=== PATIENT | male | born 1965 | race Caucasian/White ===

== ENCOUNTER 2022-01-07 09:32 | Day surgery (SDC) | payer BC, SELFPAY ==
[2022-01-07] VITALS (8 sets, daily range): BP systolic 113–131; BP diastolic 58–88; PULSE 45–76; RESP 16–18; TEMP 36.2–36.9; O2SAT 93–97; BMI 34.4
[2022-01-07] MEDS: Lactated Ringers 1,000 ML 15 ML IV ×2 (10:25→13:06)
[2022-01-07] MEDS: Cefazolin 2 GM in 0.9% Normal Saline 100 ML IV (11:37)
--- NOTE | 2022-01-07 11:40 | BLB_PTH ---
PATIENT: VAN LOPEZ [place] [facility] [place][id number] AGE/SX: 56/M ROOM: RE01/07/[address]: Dr. Trenton Hair MD : 1965 BED: DIS: 01/07/2022 SPEC #: [id number] RECD: 01/07/22 13:47 STATUS: ILYA REMingo #: [id number] MEGAN: 01/07/22 11:[address]: Trenton Hair DEPT: SURGICAL PATHOLOGY RECD BY: Era Fink ENTERED: 01/10/22 09:05 SP TYPE: TURB OTHR DR: Dr. Dominik Carlos, DO Tissues: A - Urinary bladder, NOS B - Urinary bladder, NOS Procedures: Surgery Specimen Level V HEADER OPERATION: TURBT, Olympus with Nader C, bladder instillation PRE-OP DIAGNOSIS: Bladder cancer TISSUE SUBMITTED: A ? Bladder tissue superficial, B ? Bladder tissue deep MICROSCOPIC DIAGNOSIS A. Urinary bladder tissue, transurethral resection: Papillary urothelial carcinoma. See cancer synoptic report below. B. Urinary bladder tissue, deep, tissue, transurethral resection: Papillary urothelial carcinoma. See cancer synoptic report below. AM:fransico 01/11/2022 COMMENT A. BLADDER CANCER (TUR) SUMMARY Procedure: Transurethral resection of bladder tumor (TURBT) Tumor site: Not specified Histologic type: Papillary urothelial carcinoma Histologic grade: 3/3 (high grade) Tumor configuration: Papillary Muscularis propria presence: Focally present and free of carcinoma. Lymphvascular invasion: Not identified Tumor extension: Confined to urothelium. Additional pathologic findings: Focal chronic inflammation and tumor necrosis. B. BLADDER CANCER (TUR) SUMMARY Procedure: Transurethral resection of bladder tumor (TURBT) Tumor site: Not specified Histologic type: Papillary urothelial carcinoma Histologic grade: 2-3/3 (high grade) Tumor configuration: Papillary Muscularis propria presence: Present and free of carcinoma. Lymphvascular invasion: Not identified Tumor extension: Tumor confined to urothelium. Additional pathologic findings: Chronic inflammation. The above summary is in compliance with [employer] [place] [employer] (CAP) Cancer Protocols Checklist and [place] Joint Committee on Cancer (AJCC), Staging Manual, 8th Ed. Case has been reviewed in consultation with Dr. Rosario who concurs with the above diagnosis. IDC:SJ MICROSCOPIC DESCRIPTION Slides are reviewed. GROSS DESCRIPTION A - Received in fixative is one container labeled with the patient's name and designated bladder tissue superficial. The specimen consists of multiple irregular fragments of brown soft tissue that in aggregate measure 3.5 x 3.5 x 2 cm. The entire specimen is submitted in ten cassettes. B - Received in fixative is one container labeled with the patient's name and designated bladder tissue deep. The specimen consists of multiple irregular fragments of brown soft tissue that in aggregate measure 3 x 2 x 0.3 cm. The entire specimen is submitted in one cassette. / SJ:fransico 01/10/2022 TC:0 CPT: 93634 x2
[2022-01-07] MEDS: Ketorolac 15 MG/ML Vial IV (11:49)
--- NOTE | 2022-01-07 11:50 | PCM.HP.STD ---
HPI - General HPI Narrative VAN LOPEZ, is a 56 M who presents resection of bladder cancer and instillation Mitomycin-C PFS Medical History (Updated 01/07/22 @ 11:[address] Trenton Hair MD) Alcohol use Arthritis Bladder disease Cardiology follow-up encounter Chews products containing tobacco Former smoker Gastric reflux Gout High cholesterol History of edema History of stress test Hypertension Shortness of breath on exertion Wears glasses Home Medications amlodipine 10 mg tablet 5 mg PO QHS BP 12/29/21 [History Last Taken Unknown] losartan 100 mg tablet 100 mg PO QHS BP 12/29/21 [History Last Taken Unknown] multivitamin 1 tab PO QWEEK supplement 12/29/21 [History Last Taken Unknown] omeprazole 40 mg capsule,delayed release 40 mg PO QHS GERD 12/29/21 [History Last Taken Unknown] ciprofloxacin HCl 500 mg tablet (Cipro) 500 mg PO BID #10 tabs 01/07/22 [Rx Last Taken Unknown] oxycodone-acetaminophen 5 mg-325 mg tablet 1 tab PO Q6H PRN pain 7 days #14 tabs 01/07/22 [Rx Last Taken Unknown] phenazopyridine 100 mg tablet (Pyridium) 100 mg PO TID PRN pain 3 days #10 tabs 01/07/22 [Rx Last Taken Unknown] Allergy/AdvReac Type Severity Reaction Status Date / Time No Known Allergies Allergy Verified 12/29/21 15:06 Surgical History (Updated 12/29/21 @ 16:02 by Flaca Helms) History of cardiac catheterization History of cholecystectomy History of colonoscopy History of tonsillectomy History of umbilical hernia repair Social History Smoking Status: Former smoker Vital Signs Vital Signs Vital Signs: 01/07/22 10:07 01/07/22 10:07 Temperature 98.5 F Temperature Source Temporal Pulse Rate 58 L Respiratory Rate 18 Respiratory Pattern Normal Blood Pressure 124/81 H Blood Pressure Mean 95 Blood Pressure Source Monitor Blood Pressure Position Semi-Fowlers Blood Pressure Location Left Arm Pulse Ox 97 Oxygen Delivery Method Room Air Weight Weight: 112 kg Body Mass Index (BMI) 34.4
--- NOTE | 2022-01-07 11:51 | DCINST_ITS ---
Discharge Instructions Diet Discharge Diet: Light diet - advance as tolerated and Soft diet Activity Discharge Activity: May Shower Lifting Restrictions: No heavy lifting for a few weeks Dressing / Incision Call your doctor if your incision/area has: Continuous Slow Oozing and Sudden Increased Bleeding Follow Up Care Please Follow Up With: Trenton Hair MD When: 2 weeks call for appointment Test Results: Test results from this visit will be discussed in further detail at your follow- up appointment, if applicable. Discharge Plan Admission Primary Reason for Your Visit: Resection of bladder tumor Attending Provider: Trenton Hair Primary Care Provider: Dominik Carlos Instructions Patient Instructions: Transurethral Bladder Tumor Dc Discharge Orders/Prescriptions Prescriptions: New ciprofloxacin HCl [Cipro] 500 mg tablet 500 mg PO BID Qty: 10 0RF phenazopyridine [Pyridium] 100 mg tablet 100 mg PO TID PRN (Reason: pain) 3 Days Qty: 10 0RF oxycodone-acetaminophen 5-325 mg tablet 1 tab PO Q6H PRN (Reason: pain) 7 Days Qty: 14 0RF Continued multivitamin Tablet 1 tab PO QWEEK omeprazole 40 mg capsule,delayed release(DR/EC) 40 mg PO QHS amlodipine 10 mg tablet 5 mg PO QHS Label Comments: TAKE 1 TABLET BY MOUTH ONCE DAILY FOR 90 DAYS losartan 100 mg tablet 100 mg PO QHS Label Comments: TAKE 1 TABLET BY MOUTH ONCE DAILY FOR 90 DAYS Referrals / Follow Up: Dominik Carlos DO [Primary Care Provider] - Disposition Disposition (needs filled in before D/C Order can be placed): Home, Self Care
--- NOTE | 2022-01-07 12:44 | PCM.OPRPT ---
Report of Operation Date of Procedure: 01/07/22 Pre-Operative Diagnosis: Large bladder tumor greater than 5 cm in size Post-Operative Diagnosis: Same Surgery/Procedure Performed:: Transurethral section of a large bladder tumor and instillation of Mitomycin-C Description of Surgical Findings:: Patient was taken back to the operating room at the [facility] duction of general anesthesia he was placed in dorsolithotomy position. The penis testicles were prepped and draped usual sterile fashion within the bladder with a 21 Moldovan rigid cystourethroscope with a 20 degree lens the entire length the urethra was normal the prostate was normal minimal obstruction inside the bladder there was a large tumor emanating from the patient's left lateral wall this tumor is greater than 5 cm in size and cystoscopic measurement, I then used a 30 and 70 degree lens and inspected rest of the bladder the main tumor was coming off the lateral wall and into the end of the other satellite tumors in the bladder. I then switched over to the resectoscope went in with a 24 Moldovan noncontinuous flow bipolar Olympus resectoscope and then started resecting at the edges of the tumor working my way from the 12:[address] down to the 6:00 of the tumor and then working my way down to the base of the tumor as I resected all the chips were removed I then finally got down to the base of the tumor and cauterized and resected the first initial superficial tumor was sent off of the for specimen and then I did a deeper resection and sent off a second specimen is a deeper resection to try to get muscle evaluation. The tumor was definitely large appeared to be least invasive into the lamina propria I am not sure if it was really muscle invasive it did not appear to be muscle invasive but we will see what the deeper resection show I obtained hemostasis electrocautery and inspected the rest of the bladder there were no other tumors got all the chips out all the pieces out and then put a catheter in the bladder I did have to resect the left ureter ureteral orifice but it was open and patent so I did not put a stent after the resection was done but a cath in her bladder and we put 40 cc of Mitomycin-C in the bladder as opposed to resection dose chemotherapy. No Surgeon: Trenton Hair Type of Anesthesia: General Drains: 16 fr Admit VTE Documentation VTE Present on Admission: No VTE Mechan Device Prophylaxis: SCD's VTE Pharm Prophylaxis ordered?: No
--- NOTE | 2022-01-07 13:39 | SUR.PHASEI ---
1330 PEREZ CATH D/C'D AFTER REMOVAL OF 50CC FLUID REMOVED, PT TOLERATED WELL.
== END 2022-01-07 16:31 | disposition home or self-care (01) ==
LOC: SDC 09:34 → AC 09:35
PROVIDERS: PCP Student in an Organized Health Care Education/Training Program; Referring Provider Urology; Visit Provider Urology
PROC: 0T5B8ZZ Destruction of Bladder, Via Natural or Artificial Opening Endoscopic (ICD-10-PCS; CPT 51720; principal; 2022-01-07 11:30)
DX: C67.2 Malignant neoplasm of lateral wall of bladder (principal); E78.00 Pure hypercholesterolemia, unspecified; I10 Essential (primary) hypertension; K21.9 Gastro-esophageal reflux disease without esophagitis; M19.90 Unspecified osteoarthritis, unspecified site; F17.220 Nicotine dependence, chewing tobacco, uncomplicated; R31.0 Gross hematuria; Z90.49 Acquired absence of other specified parts of digestive tract; Z72.89 Other problems related to lifestyle; Z79.899 Other long term (current) drug therapy
CPT/HCPCS: 52240; 00912; 88307; J7120; J2405; J3490; J9280

== ENCOUNTER → 2022-01-24 | Outpatient (CLI) | payer BC, SELFPAY ==
[2022-01-24 15:46] LABS: Hematocrit 45.7 % (40-54); Hemoglobin 15.4 g/dL (13.0-16.5); Mean Corp Hgb Conc 33.7 g/dL (32-36); Mean Corpuscular Hgb 29.9 pg (27.0-32.0); Mean Corpuscular Volume 88.7 fL (80-94); Mean Platelet Vol. 9.4 fl (6.2-12.0); Platelet Count 362 K/mm3 (150-450); RBC Distribution Width CV 12.6 % (11.6-14.6); Red Blood Count 5.15 M/mm3 (4.6-6.2); White Blood Count 9.9 K/mm3 (4.4-11.0)
[2022-01-24 16:51] LABS: Anion Gap 8 (5-15); BUN 16 mg/dL (7-18); Calcium,Total 9.4 mg/dL (8.5-10.1); Chloride 105 mmol/L (98-107); EST Glomerular Filtration Rate 106 mL/min (>60); Est Glom Filt Rate - Afr Amer 129 mL/min (>60); Glucose 103 mg/dL (74-106); Sodium Level 141 mmol/L (136-145)
== END | disposition home or self-care (01) ==
PROVIDERS: PCP Student in an Organized Health Care Education/Training Program; Referring Provider Urology; Visit Provider Urology
DX: Z01.812 Encounter for preprocedural laboratory examination (principal); R31.0 Gross hematuria
CPT/HCPCS: 36415; 80048; 85027; 87086; 87088

== ENCOUNTER → 2022-02-21 | Outpatient (CLI) | payer BC, SELFPAY ==
--- NOTE | 2022-02-21 | BLA_PTH ---
PATIENT: VAN LOPEZ LOC: [facility] U#:[id number] AGE/SX: 56/M ROOM: RE02/21/[address]: Dr. Trenton Hair MD : 1965 BED: DIS: 02/21/2022 SPEC #: [id number] RECD: 02/21/22 15:01 STATUS: ILYA SLOAN #: [id number] MEGAN: 02/21/22 00:[address]: Trenton Hair DEPT: SURGICAL PATHOLOGY RECD BY: Fly Fletcher ENTERED: 02/22/22 08:46 SP TYPE: BLADDER BX OTHR DR: Dr. Dominik Carlos, [facility] Tissues: Urinary bladder, NOS Procedures: Surgery Specimen Level V HEADER OPERATION: Cystoscopy, bladder biopsy with fulguration PRE-OP DIAGNOSIS: Malignant neoplasm of overlapping sites of bladder TISSUE SUBMITTED: Bladder tissue MICROSCOPIC DIAGNOSIS Bladder tissue, transurethral resection: Fragments of bladder wall (mucosa including underlying detrusor muscle) with acute and chronic inflammation. Negative for malignancy. See comment. BENITO:fransico 02/23/2022 COMMENT Overlying epithelium and a few detached fragments of urothelium are also noted showing hyperplastic changes and mild atypia. Please make reference to previous specimen ([id number]) urinary bladder tissue, TUR and urinary bladder tissue, deep tissue, TUR with diagnosis of ?papillary urothelial carcinoma.? Case has been reviewed in consultation with Dr. Argueta who concurs with the above diagnosis. IDC:AM MICROSCOPIC DESCRIPTION Slides are reviewed. GROSS DESCRIPTION Received in fixative is one container labeled with the patient's name and designated bladder tissue. The specimen consists of multiple fragments of kong hemorrhagic soft tissue that in aggregate measure 5 x 3 x 0.3 cm. The specimen is totally submitted in one cassette. The entire specimen is submitted in two cassettes. / BENITO:fransico 02/22/2022 TC:2 CPT: 19809
== END | disposition home or self-care (01) ==
LOC: LAB 15:18
PROVIDERS: PCP Student in an Organized Health Care Education/Training Program; Visit Provider Urology
DX: C67.8 Malignant neoplasm of overlapping sites of bladder (principal)
CPT/HCPCS: 88305; 88307

== ENCOUNTER → 2022-10-03 | Outpatient (CLI) | payer BC, SELFPAY ==
[2022-10-03 13:45] LABS: PSA,Total - Annual Screen 1.87 ng/mL (0.00-4.00)
== END | disposition home or self-care (01) ==
PROVIDERS: PCP Student in an Organized Health Care Education/Training Program; Referring Provider Urology; Visit Provider Urology
DX: Z12.5 Encounter for screening for malignant neoplasm of prostate (principal)
CPT/HCPCS: 36415; 84153; G0103

== ENCOUNTER 2022-10-26 07:38 | Day surgery (SDC) | payer BC, SELFPAY ==
--- NOTE | 2022-10-21 12:22 | EKG12_ITS ---
Test Reason : PREOP Blood Pressure : / mmHG Vent. Rate : 071 BPM Atrial Rate : 071 BPM P-R Int : 138 ms QRS Dur : 086 ms QT Int : 386 ms P-R-T Axes : 025 033 054 degrees QTc Int : 419 ms Normal sinus rhythm Low voltage QRS Nonspecific T wave abnormality Abnormal ECG Confirmed by MELINDA MCLAUGHLIN, INGRID ([id number]), technical editor KARI RIVERA ([id number]) on 10/24/2022 1:10:57 PM Referred By: Trenton Hair Confirmed By:ADRIENNE LAWRENCE MD
[2022-10-21 13:00] LABS: Hemoglobin 14.5 g/dL (13.0-16.5); Mean Corp Hgb Conc 33.7 g/dL (32-36); Mean Corpuscular Hgb 29.8 pg (27.0-32.0); Mean Corpuscular Volume 88.5 fL (80-94); Mean Platelet Vol. 9.8 fl (6.2-12.0); Platelet Count 270 K/mm3 (150-450); RBC Distribution Width CV 12.7 % (11.6-14.6); RBC Distribution Width SD 40.9 fl (35.1-43.9); Red Blood Count 4.86 M/mm3 (4.6-6.2); White Blood Count 6.8 K/mm3 (4.4-11.0)
[2022-10-21 13:07] LABS: Partial Thromboplast Time 28.1 Seconds (24.1-36.2); Prothrombin Time (Protime)PT. 13.6 SECONDS (11.7-14.9)
[2022-10-21 13:29] LABS: AST(SGOT) 21 U/L (15-37); Alanine Aminotransfer ALT/SGPT 31 U/L (16-61); Albumin, Serum 3.4 g/dL (3.2-5.0); Alkaline Phosphatase 60 U/L (45-117); Anion Gap 4 (5-15); BUN 13 mg/dL (7-18); BUN/Creat Ratio 15.8 RATIO (10-20); Bilirubin, Direct 0.18 mg/dL (0.00-0.30); Calcium,Total 8.7 mg/dL (8.5-10.1); Chloride 107 mmol/L (98-107); Creatinine, Serum 0.82 mg/dL (0.70-1.30); EST Glomerular Filtration Rate 102 mL/min (>60); Est Glom Filt Rate - Afr Amer 124 mL/min (>60); Globulin 4.1 g/dL (2.2-4.2); Glucose 110 mg/dL (74-106); Protein, Total 7.5 g/dL (6.4-8.2); Sodium Level 139 mmol/L (136-145)
--- NOTE | 2022-10-26 | BLB_PTH ---
PATIENT: VAN LOPEZ LOC: [facility] [place] U#:[id number] AGE/SX: 56/M ROOM: RE10/26/[address]: Dr. Trenton Hair MD : 1965 BED: DIS: 10/26/2022 SPEC #: [id number] RECD: 10/26/22 15:31 STATUS: ILYA SLOAN #: [id number] MEGAN: 10/26/22 00:[address]: Trenton Hair DEPT: SURGICAL PATHOLOGY RECD BY: Fly Fletcher ENTERED: 10/27/22 13:07 SP TYPE: TURB OTHR DR: MD Dr. Dominik Damico, Tissues: Urinary bladder, NOS Procedures: Surgery Specimen Level V HEADER OPERATION: Transurethral resection bladder tumor PRE-OP DIAGNOSIS: Bladder tumor TISSUE SUBMITTED: Bladder tumor MICROSCOPIC DIAGNOSIS Bladder tumor, transurethral resection bladder tumor: Noninvasive papillary urothelial carcinoma. See cancer summary in the comment section. BENITO: 10/28/2022 COMMENT BLADDER CANCER SUMMARY: Procedure - transurethral resection bladder tumor. Tumor site - not specified. Histologic type - papillary urothelial carcinoma, noninvasive Associated epithelial lesions - none identified. Histologic grade - 2/3 (low grade) Tumor configuration - papillary Muscularis presence - muscularis propria (detrusor muscle) not present Lymph-Vascular invasion - not identified. Tumor extension -noninvasive papillary carcinoma. Additional findings - none The above summary is in compliance with [employer] [place] [employer] (CAP) Cancer Protocols Checklist and [place] Joint Committee on Cancer (AJCC), Staging Manual, 8th Ed. Please also make reference to previous specimen [id number], Urinary bladder tumor, transurethral resection with diagnosis of papillary urothelial carcinoma. Case has been reviewed in consultation with Dr. Argueta who concurs with the above diagnosis. IDC:AM MICROSCOPIC DESCRIPTION Slides are reviewed. GROSS DESCRIPTION Received is one container labeled with the patient name and designated bladder tumor]. The specimen consists of one irregular fragment of light kong soft tissue that measures 0.2 x 0.1 x 0.1 cm. The specimen is totally submitted in one cassette. /BENITO:leigh 10/27/22 TC:0 CPT: 41665
[2022-10-26] MEDS: Lactated Ringers 1,000 ML 15 ML IV (08:08)
[2022-10-26 08:09] VITALS: BP 156/107; PULSE 57; RESP 18; TEMP 36.7; O2SAT 96; BMI 36.5
--- NOTE | 2022-10-26 09:58 | PCM.HP.STD ---
HPI - General General Date of Service: 10/26/22 Chief Complaint: Bladder cancer HPI Narrative VAN LOPEZ, is a 56 M who presents transurethral resection of a bladder tumor PFSH Medical History (Updated 10/12/22 @ 13:03 by Sharla Pisano) Alcohol use Arthritis Back pain Bladder disease Bladder disease Cancer Cardiology follow-up encounter Chews products containing tobacco Gastric reflux Gout High cholesterol History of echocardiogram History of edema History of stress test Hypertension Loss of hearing Shortness of breath on exertion Smoker Wears glasses Home Medications amlodipine 10 mg tablet 5 mg PO QHS BP 12/29/21 [History Last Taken Unknown] losartan 100 mg tablet 100 mg PO QHS BP 12/29/21 [History Last Taken Unknown] multivitamin 1 tab PO QWEEK supplement 12/29/21 [History Last Taken Unknown] omeprazole 40 mg capsule,delayed release 40 mg PO QHS GERD 12/29/21 [History Last Taken Unknown] cholecalciferol (vitamin D3) 50 mcg (2,000 unit) capsule 2,000 unit PO DAILY 10/12/22 [History Last Taken Unknown] cephalexin 500 mg capsule 500 mg PO BID #10 caps 10/26/22 [Rx Last Taken Unknown] oxycodone 5 mg tablet 5 mg PO Q6H PRN pain 7 days #10 tabs 10/26/22 [Rx Last Taken Unknown] Allergy/AdvReac Type Severity Reaction Status Date / Time No Known Allergies Allergy Verified 10/12/22 12:51 Surgical History (Updated 10/12/22 @ 13:03 by Sharal Pisano) History of cardiac catheterization History of cholecystectomy History of colonoscopy History of tonsillectomy History of transurethral resection of bladder tumor (TURBT) History of umbilical hernia repair Social History Smoking Status: Current every day smoker tobacco type: smokeless tobacco Vital Signs Vital Signs Vital Signs: 10/26/22 08:09 10/26/22 08:09 Temperature 98.1 F Temperature Source Temporal Pulse Rate 57 L Respiratory Rate 18 Respiratory Pattern Normal Blood Pressure 156/107 H Blood Pressure Mean 123 Blood Pressure Source Monitor Blood Pressure Position Semi-Fowlers Blood Pressure Location Right Arm Pulse Ox 96 Oxygen Delivery Method Room Air Weight Weight: 118.841 kg Body Mass Index (BMI) 36.5 Results Lab / Micro Data 10/21/22 12:09 10/21/22 12:09
--- NOTE | 2022-10-26 09:59 | DCINST_ITS ---
Discharge Instructions Diet Discharge Diet: No restrictions Activity Discharge Activity: Return to Normal Activity Additional Activity Instructions:: no heavy lifting Follow Up Care Please Follow Up With: Trenton Hair MD When: 2 weeks Test Results: Test results from this visit will be discussed in further detail at your follow- up appointment, if applicable. Discharge Plan Admission Primary Reason for Your Visit: resection of bladder tumor Attending Provider: Trenton Hair Primary Care Provider: Dominik Carlos Consulting Providers: Marcelo Huff Discharge Orders/Prescriptions Prescriptions: New cephalexin 500 mg capsule 500 mg PO BID Qty: 10 0RF oxycodone 5 mg tablet 5 mg PO Q6H PRN (Reason: pain) 7 Days Qty: 10 0RF Continued multivitamin Tablet 1 tab PO QWEEK omeprazole 40 mg capsule,delayed release(DR/EC) 40 mg PO QHS amlodipine 10 mg tablet 5 mg PO QHS Patient Comments: TAKE 1 TABLET BY MOUTH ONCE DAILY FOR 90 DAYS losartan 100 mg tablet 100 mg PO QHS Patient Comments: TAKE 1 TABLET BY MOUTH ONCE DAILY FOR 90 DAYS cholecalciferol (vitamin D3) 50 mcg (2,000 unit) capsule 2,000 unit PO DAILY Patient Comments: TAKE 1 CAPSULE BY MOUTH ONCE DAILY WITH FOOD FOR 90 DAYS Referrals / Follow Up: Trenton Hair MD [Med Staff - Active Staff] - Dominik Carlos DO [Primary Care Provider] - Disposition Disposition (needs filled in before D/C Order can be placed): Home, Self Care
[2022-10-26] MEDS: Cefazolin 2 GM in 0.9% Normal Saline 100 ML IV (10:13)
[2022-10-26] MEDS: MitoMYcin 40 MG in Syringe 1 EACH 2400 MG INSTILLAT (10:35)
[2022-10-26 10:52] VITALS: BP 142/97; BP 156/99; PULSE 69; RESP 14; TEMP 36.5; O2SAT 94
--- NOTE | 2022-10-26 10:52 | PCM.OPRPT ---
Report of Operation Date of Procedure: 10/26/22 Pre-Operative Diagnosis: Bladder cancer Post-Operative Diagnosis: The same Surgery/Procedure Performed:: Transurethral resection of a bladder tumor medium size Description of Surgical Findings:: 56-year-old male taken back to the operating room and smooth induction of anesthesia he was placed in dorsolithotomy position. Went into the bladder with a 21 Welsh rigid cystourethroscope inside the bladder I did a godoy cystoscopy with 30 and 70 degree lens. The penis and testicles have been prepped and draped in usual sterile fashion. Identified a tumor that was 2 cm x 2 cm x 1 cm in size in the patient's left lateral wall close to the bladder neck the rest of the tumor in the bladder rest of the bladder was clear of any tumor. I then put in the resectoscope and resected this tumor completely the pieces were sent off to pathology the left and right ureteral orifice were uninvolved. There were no other tumors visible in the bladder I then placed a catheter in the bladder only place Mitomycin-C treatment for postresection treatment patient anesthetic was reversed taken back to PACU in good condition we will drain the mitomycin about 45 minutes and remove the catheter in a.m. go home after urinates. Surgeon: Trenton Hair Type of Anesthesia: General Drains: singleton Estimated Blood Loss (mL): 0 Admit VTE Documentation VTE Present on Admission: No VTE Mechan Device Prophylaxis: SCD's VTE Pharm Prophylaxis ordered?: No
[2022-10-26 11:00] VITALS: BP 138/95; BP 156/99; PULSE 69; RESP 14; O2SAT 92
[2022-10-26 11:15] VITALS: BP 152/97; BP 156/99; PULSE 71; RESP 16; O2SAT 93
[2022-10-26 11:30] VITALS: BP 143/93; BP 156/99; PULSE 61; RESP 16; O2SAT 93
[2022-10-26 11:37] VITALS: BP 153/103; BP 156/99; PULSE 64; RESP 16; TEMP 36.4; O2SAT 97
== END 2022-10-26 13:15 | disposition home or self-care (01) ==
LOC: SDC 07:40 → AC 07:41
PROVIDERS: Anesthesiology; PCP Student in an Organized Health Care Education/Training Program; Referring Provider Urology; Visit Provider Urology
PROC: 0T5B8ZZ Destruction of Bladder, Via Natural or Artificial Opening Endoscopic (ICD-10-PCS; CPT 51720; principal; 2022-10-26 09:55)
DX: C67.9 Malignant neoplasm of bladder, unspecified (principal); F17.220 Nicotine dependence, chewing tobacco, uncomplicated; I10 Essential (primary) hypertension; K21.9 Gastro-esophageal reflux disease without esophagitis; Z79.899 Other long term (current) drug therapy
CPT/HCPCS: 52235; 00912; 36415; 80048; 80076; 85027; 85610; 85730; 88307; 93005; J7120; J9280; J2405

== ENCOUNTER → 2022-12-05 | Outpatient (CLI) | payer BC, SELFPAY | END | disposition home or self-care (01) | LOC: LABSPEC 16:11 | PROVIDERS: PCP Student in an Organized Health Care Education/Training Program; Referring Provider Urology; Visit Provider Urology | DX: R31.0 Gross hematuria (principal) | CPT/HCPCS: 87086; 87088; 87186 ==